=== PATIENT | female | born 1995 | race Hispanic/Latino ===

== ENCOUNTER 2023-11-01 04:56 | Emergency (ER) | payer SELFPAY ==
[~2023-11-01] VITALS: Ht 165.1 cm; Wt 83.9 kg
[2023-11-01] MEDS: acetaMINOPHEN 325 MG TAB PO ONE (05:55)
[2023-11-01] MEDS: IBUPROFEN 600 MG TABLET PO ONE (05:56)
[2023-11-01] MEDS ORDERED: IBUP-2070 PO (06:42)
[2023-11-01] MEDS ORDERED: ACET325T51 PO (06:42)
[2023-11-01 06:49] VITALS: BP 128/77; PULSE 85; RESP 24; O2SAT 96
== END 2023-11-01 07:05 | disposition home or self-care (01) ==
LOC: EDH 04:56
DX: S00.83XA Contusion of other part of head, initial encounter (principal); Z88.0 Allergy status to penicillin; Y08.89XA Assault by other specified means, initial encounter; Y93.89 Activity, other specified; Y92.89 Other specified places as the place of occurrence of the external cause; Y99.8 Other external cause status
CPT/HCPCS: 70486; 81025